=== PATIENT | male | born 1960 | race Caucasian/White ===

== ENCOUNTER 2021-03-31 08:08 | Outpatient (CLI) | payer OTHER, SELFPAY ==
--- NOTE | ~2021-03-31 | XR_ITS ---
EXAMINATION: XR UGI w barium swallow DATE: 03/31/2021 08:58 INDICATION: Gastroesophageal reflux with esophagitis TECHNIQUE: The patient drank thick barium, gas-producing crystals, and thin barium. Fluoroscopic spot radiographs of the hypopharynx, esophagus, stomach and proximal small bowel were obtained. Fluorosco py exposure time was 2.6 minutes. A total of 837 images were recorded. Total DAP was 16.144 mGycm^2 COMPARISON: None. FINDINGS: The pharynx is symmetric and without evidence of mass lesion or mucosal irregularity. The esophagus i s normal without mass or stricture. Esophageal motility is normal. Small sliding-type hiatal hernia w ith gastroesophageal junction approximately 3 to 4 cm above level of the diaphragm. A single episode of gastroesophageal reflux of a moderate amount of contrast into the mid esophagus was observed with provocative maneuvers. The stomach and proximal small bowel are normal. IMPRESSION: 1. Small sliding-type hiatal hernia with gastroesophageal reflux. Reviewed, dictated and finalized at location A.
== END 2021-03-31 08:09 | disposition home or self-care (01) ==
PROVIDERS: PCP Emergency Medicine; Visit Provider Internal Medicine Gastroenterology
DX: K21.00 Gastro-esophageal reflux disease with esophagitis, without bleeding (principal); K44.9 Diaphragmatic hernia without obstruction or gangrene
CPT/HCPCS: 74240

== ENCOUNTER 2021-04-15 00:53 | Day surgery (SDC) | payer OTHER, SELFPAY ==
[2021-04-06 10:15] VITALS: BMI 25.0
[2021-04-15] MEDS: LACTATED RINGERS 1,000 ML 150 ML IV CONT (13:03)
[2021-04-15 13:05] VITALS: BP 135/81; PULSE 66; RESP 18; TEMP 36.3; O2SAT 100
--- NOTE | 2021-04-15 13:15 | WPDANESEPPF ---
Anes - Initial Pre Proc Eval Procedure: Operation Date: 04/15/21 14:00 Proposed Procedures p Esophagogastroduodenoscopy - Jeff Villa MD Date/Time: 04/15/21 13:15 Surgeon: Jeff Villa MD Pre Op Diagnosis: GERD Patient Data Age: 60 Gender: M Height: 1.77 m Weight: 79 kg Last Vital Signs Temp 36.3 C L 04/15/21 13:05 Pulse 66 04/15/21 13:05 Resp 18 04/15/21 13:05 BP 135/81 04/15/21 13:05 Pulse Ox 100 04/15/21 13:05 Allergies Allergy/AdvReac Type Severity Reaction Status Date / Time No Known Allergies Allergy Unverified 04/15/21 12:42 Home Medications Medication Instructions Recorded Confirmed Type acetaminophen 500 mg tablet See Rx Instructions .ROUTE .COMPLEX 09/12/19 04/06/21 History gabapentin 300 mg capsule See Rx Instructions .ROUTE .COMPLEX 03/29/20 04/06/21 History propranolol 20 mg tablet See Rx Instructions .ROUTE 08/31/20 04/06/21 Rx .COMPLEX #180 tablet pantoprazole 40 mg tablet,delayed See Rx Instructions .ROUTE 09/21/20 04/06/21 Rx release .COMPLEX #180 tablet sertraline 50 mg tablet 50 mg PO DAILY #90 tablet 11/30/20 04/06/21 Rx tramadol 50 mg tablet 50 mg PO Q6H PRN #30 tablet 12/16/20 04/06/21 Rx baclofen 10 mg tablet 10 mg PO BID PRN tablet 03/22/21 04/06/21 History etanercept 50 mg/mL (1 mL) 50 mg SUBCUT WEEKLY 03/22/21 04/06/21 History subcutaneous syringe famotidine 10 mg tablet 10 mg PO BID 03/22/21 04/06/21 History alprazolam 0.5 mg tablet 0.5 mg PO BID PRN #20 tablet 03/25/21 04/06/21 Rx Patient hx anesthesia problems: none Family hx anesthesia problems: none Results Review: All pre-operative results and documents have been reviewed as part of the pre-operative evaluation. [facility] Past Medical History Medical History Ankylosing spondylitis Crohn disease GERD (gastroesophageal reflux disease) Family History Family History Mother Hypertension Family history of atrial fibrillation Father Family history of diabetes mellitus in first degree relative Family history of congestive heart failure Social History Social History Smoking status: Never smoker Alcohol intake: current Living arrangements: with family Spiritual care concerns: No Anes - Eval Final PreProcedure Day of Procedure 04/15/21 13:15 Patient weight: normal Heart: regular rate and rhythm Lungs: clear to auscultation Airway: Mallampati scale class II Neurological: alert and oriented Last oral intake: >/= 8 hours ASA classification: III Emergent: no Anesthetic plan: proceed Anesthesia type and monitoring: general GIVS and standard monitoring Results Review: All pre-operative results and documents have been reviewed as part of the pre-operative evaluation. Informed Consent: The patient's anesthetic plan and its attendant risks and benefits were discussed with the patient/family/POA. Questions were solicited and answers provided to the satisfaction of the patient/family/POA.
--- NOTE | 2021-04-15 13:19 | PM.HPGS ---
History of Present Illness History of Present Illness Consent: Risks, benefits, and alternatives have been discussed and questions answered. Patient agrees to proceed with procedure. Chief complaint: GERD Narrative: Villa Miranda is a 60 year old male With a long history of acid reflux problems. Several years ago he was diagnosed with eosinophilic esophagitis. He has been taking pantoprazole 40 mg daily. Despite this he wakes up almost every night regurgitating the. Many foods make him more likely to have heartburn or reflux. He denies dysphagia. Recent upper GI showed a hiatal hernia Review of Systems Review of Systems: All systems reviewed & are unremarkable except as noted in HPI and below PMFSH Past Medical History Medical History Ankylosing spondylitis Crohn disease GERD (gastroesophageal reflux disease) Family History Family History Mother Hypertension Family history of atrial fibrillation Father Family history of diabetes mellitus in first degree relative Family history of congestive heart failure Social History Social History Smoking status: Never smoker Alcohol intake: current Living arrangements: with family Spiritual care concerns: No Meds Home Medications and Allergies Home Medications Medication Instructions Recorded Confirmed Type acetaminophen 500 mg tablet See Rx Instructions .ROUTE .COMPLEX 09/12/19 04/06/21 History gabapentin 300 mg capsule See Rx Instructions .ROUTE .COMPLEX 03/29/20 04/06/21 History propranolol 20 mg tablet See Rx Instructions .ROUTE 08/31/20 04/06/21 Rx .COMPLEX #180 tablet pantoprazole 40 mg tablet,delayed See Rx Instructions .ROUTE 09/21/20 04/06/21 Rx release .COMPLEX #180 tablet sertraline 50 mg tablet 50 mg PO DAILY #90 tablet 11/30/20 04/06/21 Rx tramadol 50 mg tablet 50 mg PO Q6H PRN #30 tablet 12/16/20 04/06/21 Rx baclofen 10 mg tablet 10 mg PO BID PRN tablet 03/22/21 04/06/21 History etanercept 50 mg/mL (1 mL) 50 mg SUBCUT WEEKLY 03/22/21 04/06/21 History subcutaneous syringe famotidine 10 mg tablet 10 mg PO BID 03/22/21 04/06/21 History alprazolam 0.5 mg tablet 0.5 mg PO BID PRN #20 tablet 03/25/21 04/06/21 Rx Allergies Allergy/AdvReac Type Severity Reaction Status Date / Time No Known Allergies Allergy Unverified 04/15/21 12:42 Vital Signs Vital Signs - 24 hr 04/15/21 13:05 Temperature 36.3 C L Pulse Rate 66 Respiratory Rate 18 Blood Pressure 135/81 Pulse Oximetry 100 Exam Resp: Auscultation: clear to auscultation bilaterally Cardio: Rate: regular rate Rhythm: regular rhythm GI: GI Palp: Yes Soft to palpation and No Tenderness to palpation present (GI) Assessment and Plan Assessment and plan (1) GERD (gastroesophageal reflux disease): Qualifiers: Esophagitis presence: with esophagitis Qualified Code(s): K21.0 - Gastro-esophageal reflux disease with esophagitis Code(s): K21.9 - Gastro-esophageal reflux disease without esophagitis Status: Acute Assessment and Plan: EGD with possible biopsy or dilatation or cautery.
[2021-04-15 13:38] VITALS: BP 130/80; PULSE 76; RESP 27; O2SAT 99
[2021-04-15 13:48] VITALS: BP 143/93; PULSE 62; RESP 18; O2SAT 100
[2021-04-15 13:58] VITALS: BP 153/93; PULSE 60; RESP 17; O2SAT 100
== END 2021-04-15 14:06 | disposition home or self-care (01) ==
PROVIDERS: PCP Emergency Medicine; Visit Provider Internal Medicine Gastroenterology
PROC: 0DJ08ZZ Inspection of Upper Intestinal Tract, Via Natural or Artificial Opening Endoscopic (ICD-10-PCS; CPT 43235; principal; 2021-04-15 14:00)
DX: K21.00 Gastro-esophageal reflux disease with esophagitis, without bleeding (principal); K50.90 Crohn's disease, unspecified, without complications; M45.9 Ankylosing spondylitis of unspecified sites in spine
CPT/HCPCS: 43239; 88305; J2001; J2704; J7120

== ENCOUNTER 2021-05-04 21:22 | Emergency (ER) | payer OTHER, SELFPAY ==
--- NOTE | ~2021-05-04 | CT_ITS ---
EXAMINATION: CTA brain carotid EXAM DATE: 05/04/2021 23:57 INDICATION: Falls, on blood thinners. TECHNIQUE: Noncontrast head CT. Spiral CTA of the carotid arteries was performed with intravenous i njection 100 cc of Omnipaque 350. Axial, coronal, sagittal reformatted images reviewed. Additional r eformatted images created on dedicated 3-D workstation. NASCET comparable standard used to assess th e degree of arterial stenosis. Spiral CT angiogram cerebral arteries performed with the same intrave nous injection of contrast. Source images of the brain CTA transferred to dedicated workstation for 3 -D rotational image creation. Coronal, sagittal maximum intensity pixel images also reviewed. The d ose-length product (DLP) for this examination was 1766.71 mGy-cm. The exposure was tailored accordi ng to patient size, and iterative reconstruction (ASIR) was used as additional dose reduction techniq ue. There is no prior study for comparison. FINDINGS: There is minimal left carotid bulb arterial sclerosis, and none on the right, 0% stenosis b ilaterally. There is no carotid or vertebral basilar arterial dissection or fibromuscular dysplasia. There are no cerebral artery aneurysms. There is symmetric cerebral artery arborization. The sagitta l, transverse and sigmoid sinuses enhance normally, no venous sinus thrombosis. Internal cerebral vei ns also enhance normally. There is no acute intraparenchymal hemorrhage. Mild microangiopathy. No evidence of intraparenchymal brain mass lesion. No evidence of acute infarction. There is no mass effect or midline shift. There is no obstructive hydrocephalus suspected. There are no extra-axial collections. There is mild ethmo id mucoperiosteal thickening. Mastoid air cells are well aerated. Incidental Findings: Lung apices are unremarkable. Osseous fusion of upper cervical vertebral bodies without fracture. IMPRESSION: 1. No acute carotid or intracranial findings. 2. Mild microangiopathy. Reviewed, dictated and finalized at location A.
[2021-05-04 21:27] VITALS: BP 195/95; PULSE 72; RESP 18; TEMP 36.8; O2SAT 98
--- NOTE | 2021-05-04 21:30 | ECG_ITS ---
Measurements Intervals [place] Rate: 70 P: 61 [place]: 185 QRS: 63 QRSD: 90 T: 64 QT: 374 QTc: 406 Interpretive Statements SINUS RHYTHM BASELINE ARTIFACT- II, III NORMAL ECG Electronically Signed On 05-05-2021 6:33:09 CDT by Gerson Monson D.O.
[2021-05-04 23:06] VITALS: BP 180/99; PULSE 78; RESP 16; TEMP 36.7; O2SAT 99
[2021-05-04 23:09] LABS: Basophils Absolute Auto 0.1 K/mm3 (0.0-0.1); Basophils Percent Auto 1.5 % (0.2-1.2); Eosinophils Absolute Auto 0.8 K/mm3 (0-0.3); Eosinophils Percent Auto 9.3 % (0-4.4); Hematocrit 44.7 % (42.0-52.0); Hemoglobin 13.9 g/dL (14.0-18.0); Immature Granulocyte Absolute 0.02 K/mm3 (0.00-0.031); Immature Granulocyte Percent A 0.2 % (0-0.5); Lymphocytes Absolute Auto 1.54 K/mm3 (0.9-3.2); Lymphocytes Percent Auto 18.3 % (18.3-44.2); Mean Corpuscular HGB Conc 31.1 g/dl (32-36); Mean Corpuscular Hemoglobin 26.7 pg (26-34); Mean Corpuscular Volume 85.8 fl (80-100); Mean Platelet Volume 9.7 fl (7.4-10.4); Monocytes Absolute Auto 0.9 K/mm3 (0.1-0.6); Neutrophils Percent Auto 59.7 % (45.5-73.1); Platelet Count Result 276 k/mm3 (150-375); Red Blood Count 5.21 M/mm3 (4.6-6.20); Red Cell Distribution Width 14.4 % (11.5-14.5); White Blood Count 8.4 K/mm3 (4.5-10.0)
--- NOTE | 2021-05-04 23:16 | ED.AMS ---
HPI - Altered Mental Status General Chief Complaint: Altered Mental Status Stated Complaint: felt like was going dream to dream @2030 Time Seen by Provider: 05/04/21 22:45 Source: patient Mode of arrival: ambulatory Limitations: no limitations History of Present Illness HPI narrative: 60-year-old male with history of ankylosing spondylolisthesis, resting tremor and GERD arrives complaining of feeling like he is in a dream as well as neck pain with occipital pain sudden onset just prior to arrival. Patient was sitting in a chair when he suddenly felt as if he was in a dream and could not stop himself out of it which made him become more anxious and developed palpitations. No palpitations now. He does not have that same feeling now. However he is complaining of mid occiput pain rating to the central neck. Of note patient does not have a history of hypertension he came in at 195/95 pulse of 92. No other focal deficits noted. His states his left leg seems to be weaker prior to arrival but now is okay. Patient taking all medications, states he was not falling asleep at the time, no fever, no vomiting, does have some nausea. No vertigo, no syncope. No previous history of same. No recent medication changes. Patient arrives alert and oriented x4 GCS 15 with no focal neuro deficits noted. Related Data Home Medications Medication Instructions Recorded Confirmed acetaminophen 500 mg tablet See Rx Instructions .ROUTE .COMPLEX 09/12/19 04/20/21 gabapentin 300 mg capsule See Rx Instructions .ROUTE .COMPLEX 03/29/20 04/20/21 baclofen 10 mg tablet 10 mg PO BID PRN tablet 03/22/21 04/20/21 etanercept 50 mg/mL (1 mL) 50 mg SUBCUT WEEKLY 03/22/21 04/20/21 subcutaneous syringe famotidine 10 mg tablet 10 mg PO BID 03/22/21 04/20/21 Allergies Allergy/AdvReac Type Severity Reaction Status Date / Time No Known Allergies Allergy Verified 04/20/21 11:43 Review of Systems Review of Systems: CONSTITUTIONAL: no fever, no weight loss, no confusion EYES: no vision changes, no eye pain ENT: no rhinorrhea, no sore throat, no difficulty swallowing CARDIOVASCULAR: no chest pain, no leg edema, no palpitations RESPIRATORY: no cough, no shortness of breath, no hemoptysis GASTROINTESTINAL: no abdominal pain, no nausea, no vomiting, no diarrhea GENITOURINARY: no flank pain, no dysuria, no hematuria SKIN: no rash, no jaundice MUSCULOSKELETAL: no back pain, no trauma. NEUROLOGIC: No headache, no dizziness, no focal weakness PSYCHIATRIC: No hallucinations, no suicidal ideation [facility] Past Medical History Medical History (Updated 05/05/21 @ 02:10 by Radha Sommer MD) Ankylosing spondylitis Crohn disease GERD (gastroesophageal reflux disease) Family History Family History Mother Hypertension Family history of atrial fibrillation Father Family history of diabetes mellitus in first degree relative Family history of congestive heart failure Social History Social History Smoking status: Never smoker Alcohol intake: current Spiritual care concerns: No Exam Narrative: General: alert, afebrile, answering all questions appropriately Head: normocephalic, atraumatic Eyes: PERRLA, EOMI bilaterally, anicteric, no injection ENT: moist mucous membranes, oropharynx patent, no rhinorrhea Neck: supple, trachea midline, no JVD Chest: equal chest rise bilaterally, no chest wall trauma noted CV: regular rate, no BLU B, calf size equal bilaterally Abd: soft, non-distended, non-tender, no rebound, no gaurding, negative Short's : no CVA tenderness B, bladder non-distended Back: no lumbar bony tenderness. paraspinal muscles without spasm EXT: no deformity noted, moving all extremities equally Skin: warm, dry, no pallor Neuro: alert, oriented x 3; CN 2-12 grossly intact, no dysarthria Psych: affect appropriate, though cont
[2021-05-04 23:41] LABS: Alanine Aminotransferase 19 U/L (4-50); Albumin Level 4.4 g/dL (3.5-5.1); Alkaline Phosphatase 73 U/L (38-126); Anion Gap 8 mmol/L (8-16); Aspartate Amino Transferase 26 U/L (17-59); Bilirubin,Total 0.4 mg/dL (0.2-1.3); Blood Urea Nitrogen 15 mg/dL (9-20); Calcium 9.4 mg/dL (8.4-10.2); Carbon Dioxide 30 mmol/L (22-30); Chloride 103 mmol/L (98-107); Estimated CRCL calculation 90 ml/min; Estimated Glomerular Filt Rate > 60; Glucose 115 mg/dL (65-110); Potassium 4.3 mmol/L (3.4-5.0); Sodium 141 mmol/L (137-145)
[2021-05-05 00:11] VITALS: PULSE 68
[2021-05-05] MEDS: METOPROLOL TARTRATE INJ 5 MG/5 ML VIAL IV PUSH (00:11)
[2021-05-05 00:19] VITALS: BP 176/86; PULSE 76; RESP 16; O2SAT 99
[2021-05-05 00:28] LABS: Add Urine Microscopic? NO; Appearance Urine Clear (Clear); Bilirubin Urine Negative (Negative); Blood Urine Negative (Negative); Color Urine Straw (Yellow); Glucose Urine UA Negative (Negative); Ketones Urine Negative (Negative); Leukocyte Esterase Ur Negative LEU/UL (Negative); Nitrate Urine Negative (Negative); Protein Urine Negative (Negative); Specific Grav Ur 1.008 (1.001-1.035); Urobilinogen Urine Negative mg/dL (<2.0)
[2021-05-05 02:19] VITALS: BP 146/87; PULSE 77; RESP 18; O2SAT 99
== END 2021-05-05 02:20 | disposition home or self-care (01) ==
PROVIDERS: Family Medicine; Emergency Provider Emergency Medicine; PCP Emergency Medicine
DX: I67.4 Hypertensive encephalopathy (principal); I16.1 Hypertensive emergency; K50.90 Crohn's disease, unspecified, without complications; K21.9 Gastro-esophageal reflux disease without esophagitis; M45.9 Ankylosing spondylitis of unspecified sites in spine; I73.9 Peripheral vascular disease, unspecified
CPT/HCPCS: 36415; 70496; 70498; 80053; 81003; 85025; 93005; 96374; 99284; Q9967

== ENCOUNTER 2021-05-16 09:07 | Emergency (ER) | payer OTHER, SELFPAY ==
[2021-05-16 09:17] VITALS: BP 137/75; PULSE 84; RESP 20; TEMP 36.6; O2SAT 100
--- NOTE | 2021-05-16 09:53 | ED.URI ---
HPI - URI/Sore Throat General Chief Complaint: Upper Respiratory Infection Stated Complaint: Sore Throat/Cough Time Seen by Provider: 05/16/21 09:52 Source: patient and RN notes reviewed Mode of arrival: ambulatory Limitations: no limitations History of Present Illness HPI Narrative: 60-year-old male presents with concern for more than 1 week history of cough, chest congestion, sinus congestion and sore throat. Reports symptoms worsened yesterday and cough is productive. Reports he has been taking Mucinex DM with little relief. He denies fever, body aches, chills, sweats. He denies shortness of breath. Reports he has been vaccinated for Covid and flu and had a Covid booster. Reports he had a Covid infection in July of this year. MD elicited complaint: cough Related Data Home Medications Medication Instructions Recorded Confirmed acetaminophen 500 mg tablet See Rx Instructions .ROUTE .COMPLEX 09/12/19 04/20/21 gabapentin 300 mg capsule See Rx Instructions .ROUTE .COMPLEX 03/29/20 04/20/21 baclofen 10 mg tablet 10 mg PO BID PRN tablet 03/22/21 04/20/21 etanercept 50 mg/mL (1 mL) 50 mg SUBCUT WEEKLY 03/22/21 04/20/21 subcutaneous syringe famotidine 10 mg tablet 10 mg PO BID 03/22/21 04/20/21 Allergies Allergy/AdvReac Type Severity Reaction Status Date / Time No Known Allergies Allergy Verified 05/16/21 09:53 Review of Systems Review of Systems: CONSTITUTIONAL: Reports malaise. Denies chills, sweats, or fever. EYES: Denies visual changes, redness, or discharge. ENT: Reports rhinorrhea, congestion, sore throat. CARDIOVASCULAR: Denies chest pain, palpitations, or edema. RESPIRATORY: Reports cough, productive cough. Denies dyspnea. GASTROINTESTINAL: Denies nausea, vomiting, diarrhea SKIN: Denies rash or itching. MUSCULOSKELETAL: Reports myalgia. NEUROLOGIC: Denies headache. All systems reviewed & are unremarkable except as noted in HPI and below PMFSH Past Medical History Medical History Amputation of digit of left hand Ankylosing spondylitis Crohn disease GERD (gastroesophageal reflux disease) Surgical History Surgical History [place] teeth extracted Family History Family History Mother Hypertension Family history of atrial fibrillation Father Family history of diabetes mellitus in first degree relative Family history of congestive heart failure Social History Social History Smoking status: Never smoker Alcohol intake: current Spiritual care concerns: No Comments At time of signature, agree with nursing past medical, surgical, social and family history. There is no relevant family history pertinent to the presenting complaint Exam Narrative: GENERAL: Well-appearing, well-nourished, and in no acute distress. HEAD: Normocephalic EYES: PERRLA, conjunctivae clear ENT: Nares clear, turbinates edematous, clear discharge. Mucous membranes moist. TM pearly betancur with sharp light reflex bilaterally; no tragal tenderness. Oropharynx mildly erythematous without lesions. Tonsils not enlarged and without exudate, no drooling, no hoarseness, no trismus, uvula midline. NECK: Supple. No lymphadenopathy CHEST: Clear to auscultation, breath sounds equal. No wheezing, rhonchi, rales, or stridor. No respiratory distress, speaks in full sentences. HEART: Regular rate and rhythm. No murmur heard. SKIN: Warm, dry, no rash. NEURO: Alert and oriented x3. PSYCH: Normal mood and affect Course Course Emergency Course: Patient is aware of diagnosis, understands and agrees to treatment plan. Anticipatory guidance given. Patient agrees to follow-up as directed and is aware of reasons to seek care at the emergency department. Portions of this record may have been created with voice recog
== END 2021-05-16 10:05 | disposition home or self-care (01) ==
PROVIDERS: Emergency Provider Nurse Practitioner; PCP Emergency Medicine
DX: J32.9 Chronic sinusitis, unspecified (principal); J40 Bronchitis, not specified as acute or chronic; Z20.822 Contact with and (suspected) exposure to COVID-19; K21.9 Gastro-esophageal reflux disease without esophagitis; K50.90 Crohn's disease, unspecified, without complications; M45.9 Ankylosing spondylitis of unspecified sites in spine; Z89.021 Acquired absence of right finger(s)
CPT/HCPCS: 87081; 87426; 87880; 99213; C9803; G0463

== ENCOUNTER 2021-10-27 10:34 | Outpatient (CLI) | payer OTHER, SELFPAY ==
--- NOTE | ~2021-10-27 | XR_ITS ---
EXAMINATION: XR chest 2V DATE: 10/27/2021 11:14 INDICATION: Gastroesophageal reflux disease with esophagitis. TECHNIQUE: Frontal and lateral views of the chest were obtained. COMPARISON: Chest 2 views 03/04/2015 FINDINGS: A calcified left lung nodule is consistent with old granulomas disc disease. No pleural eff usion or pneumothorax. The heart size is normal. IMPRESSION: 1. No acute cardiopulmonary disease. Reviewed, dictated and finalized at location A.
--- NOTE | 2021-10-27 10:30 | ECG_ITS ---
Measurements Intervals [place] Rate: 61 P: 58 [place]: 205 QRS: 40 QRSD: 86 T: 42 QT: 376 QTc: 381 Interpretive Statements SINUS RHYTHM COMPARED TO ECG 05/04/2021 21:37:20 NO SIGNIFICANT CHANGES Electronically Signed On 10-27-2021 20:54:18 CDT by Mary Murphy M.D.
[2021-10-27 11:28] LABS: Basophils Absolute Auto 0.1 K/mm3 (0.0-0.1); Basophils Percent Auto 2.1 % (0.2-1.2); Eosinophils Absolute Auto 0.4 K/mm3 (0-0.3); Eosinophils Percent Auto 8.3 % (0-4.4); Hematocrit 43.9 % (42.0-52.0); Hemoglobin 13.5 g/dL (14.0-18.0); Lymphocytes Absolute Auto 1.53 K/mm3 (0.9-3.2); Lymphocytes Percent Auto 29.5 % (18.3-44.2); Mean Corpuscular HGB Conc 30.8 g/dl (32-36); Mean Corpuscular Hemoglobin 26.7 pg (26-34); Mean Corpuscular Volume 86.9 fl (80-100); Mean Platelet Volume 10.5 fl (7.4-10.4); Monocytes Absolute Auto 0.8 K/mm3 (0.1-0.6); Monocytes Percent Auto 14.8 % (2.6-8.5); Neutrophils Absolute Auto 2.4 K/mm3 (1.3-6.7); Neutrophils Percent Auto 45.3 % (45.5-73.1); Platelet Count Result 255 k/mm3 (150-375); Red Blood Count 5.05 M/mm3 (4.6-6.20); Red Cell Distribution Width 13.9 % (11.5-14.5); White Blood Count 5.2 K/mm3 (4.5-10.0)
[2021-10-27 11:38] LABS: Anion Gap 5 mmol/L (8-16); Blood Urea Nitrogen 14 mg/dL (9-20); Calcium 8.5 mg/dL (8.4-10.2); Carbon Dioxide 31 mmol/L (22-30); Chloride 105 mmol/L (98-107); Estimated Glomerular Filt Rate > 60; Glucose 79 mg/dL (65-110); Sodium 141 mmol/L (137-145)
== END 2021-10-27 10:35 | disposition home or self-care (01) ==
PROVIDERS: PCP Emergency Medicine; Visit Provider Surgery
DX: Z01.818 Encounter for other preprocedural examination (principal); K21.00 Gastro-esophageal reflux disease with esophagitis, without bleeding
CPT/HCPCS: 36415; 71046; 80048; 85025; 86850; 86900; 86901; 93005

== ENCOUNTER 2021-11-03 14:02 | Observation (INO) | payer OTHER, SELFPAY ==
[2021-10-25 10:33] VITALS: BMI 25.9
--- NOTE | 2021-10-25 11:48 | PC.NURSE ---
Report to the Outpatient Waiting Room, entrance under the green pavilion located off [facility], at time _06:00__on date _11/02/21__. OR Time: _07:30_. - You and your visitor will be asked a series of questions to screen for COVID 19 for your protection. - A mask is required within the hospital. Preoperative COVID Testing Requirements: No COVID Test needed Patients may have clear liquids (water, carbonated beverages, clear teas, apple juice) until 3 hours prior to surgery with a maximum of 20 ounces. - No food from midnight until time of surgery - Take the following medications with a SIP of water the morning of surgery: ALPRAZOLAM IF NEEDED, BACLOFEN IF NEEDED, GABAPENTIN, PROPRANOLOL, TRAMADOL IF NEEDED, SERTRALINE Medications to discontinue per physician ___N/A Date to take last dose Please no make-up, nail filipino, hairspray, perfume, deodorant, or body powder the day of surgery. No jewelry (including any body piercings) or valuables the day of surgery, leave them at home. Please take a shower or bath the night before, or the morning of, surgery with an antibacterial soap. Wear comfortable, loose fitting clothing. - Jewelry must be removed prior to entering the operating room. Rings and piercings that are not removed may be cut off. - The hospital will not accept responsibility for valuables. - Please leave all valuables, including medications, at home the day of surgery. If you are going home after surgery, a licensed pile driver must drive you home. - NO public transportation without another adult. - We recommend that an adult stay with you for 24 hours following discharge. - We also recommend that you do not drive, make important decision, drink alcoholic beverages, or take any drugs that were not prescribed by your health care provider for at least 24 hours after your discharge time. One visitor will be allowed to accompany the patient into the hospital. Patients visitor will be instructed to remain with patient at all times or leave the building. We will allow the visitor to come back to the postoperative area when patient is ready. Follow any additional instructions given to you from your surgeon. Telephone instructions given to __GILMER__and asked if any additional questions and then verbalized understanding. Patient advised to call surgeon office or pre surgery nurse liaison [phone] if any additional questions.
--- NOTE | 2021-10-27 09:10 | PM.IMHP ---
H&P: HPI History of Present Illness Date/Time: 10/27/21 09:10 Chief Complaint: Persistent heartburn Narrative: patient is a 61-year-old man who has a history of ankylosing spondylitis. He takes etanercept or Enbrel for this. He was initially seen in referral from Dr. Villa back in May of 2021 for recalcitrant gastroesophageal reflux disease with esophagitis. Patient has been taking Protonix 40 mg b.i.d. for at least 4 years due to an endoscopic biopsy of eosinophilic esophagitis. His symptoms of heartburn were mild until October of 2020 at which time they got considerably worse. He saw Dr. Villa and in April of 2021 underwent repeat EGD. Biopsies of the upper esophagus did not so eosinophilic esophagitis but did show chronic esophagitis. Biopsies of the lower esophagus I guess showed nonerosive gastroesophageal reflux disease. Patient also had a upper GI in March of 2021 which showed a small hiatal hernia with gastroesophageal reflux. At the time of his visit in May, he was taking not only Protonix but also Pepcid for reflux symptoms but was still symptomatic. He was sent for esophageal manometry in June which showed a normal lower esophageal sphincter and normal esophageal body peristalsis. patient also has a history of Crohn's disease but does not take any medication specifically for this although he does take etanercept as noted above. He had thorough discussion of surgical remedy of persistent gastroesophageal reflux disease at both his office visits. He is taken to surgery now at this time for laparoscopic Soraya fundoplication. Review of Systems Review of Systems: All systems reviewed & are unremarkable except as noted in HPI and below Constitutional: Constitutional: Denies chills and Denies fever(s) Cardiovascular: Cardiovascular: Denies chest pain, Denies diaphoresis, Denies dyspnea and Denies paroxysmal nocturnal dyspnea Respiratory: Respiratory: Denies chest congestion, Denies cough and Denies dyspnea Gastrointestinal: Gastrointestinal: Denies bloating, Denies constipation and Denies nausea Integumentary/Breasts: Skin/Breast: Denies lesions and Denies rash Neurologic: Denies confusion and Denies headache(s) [facility] Past Medical History Medical History (Updated 10/27/21 @ 09:27 by Marquise Sandoval MD) Amputation of digit of left hand Ankylosing spondylitis Crohn disease Eosinophilic esophagitis Surgical History Surgical History [place] teeth extracted Family History Family History Mother Hypertension Family history of atrial fibrillation Father Family history of diabetes mellitus in first degree relative Family history of congestive heart failure Social History Social History Smoking status: Never smoker Alcohol intake: current Substance use: never Substance use type: does not use Spiritual care concerns: No Meds Home Medications and Allergies Home Medications Medication Instructions Recorded Confirmed Type acetaminophen 500 mg tablet See Rx Instructions .ROUTE .COMPLEX 09/12/19 10/25/21 History gabapentin 300 mg capsule 300 mg PO TID 03/29/20 10/25/21 History tramadol 50 mg tablet 50 mg PO Q6H PRN #30 tablet 12/16/20 10/25/21 Rx baclofen 10 mg tablet 10 mg PO TID PRN tablet 03/22/21 10/25/21 History famotidine 10 mg tablet 10 mg PO BID 03/22/21 10/25/21 History etanercept [Enbrel SureClick] 50 mg SUBCUT WEEKLY 05/16/21 10/25/21 History famotidine-Ca carb-mag hydrox 10 1 tablet PO BID 05/23/21 10/25/21 History mg-800 mg-165 mg chewable tablet pantoprazole 40 mg tablet,delayed 40 mg PO BID #180 tablet 06/27/21 10/25/21 Rx release propranolol 20 mg tablet 20 mg PO BID #180 tablet 06/27/21 10/25/21 Rx sertraline 50 mg tablet 50 mg PO DAILY #90 tablet 09/16/21 10/25/21 Rx atorvastatin 10 mg tablet
--- NOTE | 2021-11-01 13:20 | WPDANESEPPF ---
Anes - Initial Pre Proc Eval Procedure: Operation Date: 11/02/21 07:30 Proposed Procedures p Laparoscopic Soraya Fundoplication - Marquise Sandoval MD Date/Time: 11/01/21 13:20 Surgeon: Marquise Sandoval MD Pre Op Diagnosis: GERD Patient Data Age: 61 Gender: M Height: 1.78 m Weight: 82 kg Allergies Allergy/AdvReac Type Severity Reaction Status Date / Time No Known Allergies Allergy Verified 11/02/21 06:24 Home Medications Medication Instructions Recorded Confirmed Type acetaminophen 500 mg tablet See Rx Instructions .ROUTE .COMPLEX 09/12/19 11/02/21 History gabapentin 300 mg capsule 300 mg PO TID 03/29/20 11/02/21 History tramadol 50 mg tablet 50 mg PO Q6H PRN #30 tablet 12/16/20 11/02/21 Rx baclofen 10 mg tablet 10 mg PO TID PRN tablet 03/22/21 11/02/21 History etanercept [Enbrel SureClick] 50 mg SUBCUT WEEKLY 05/16/21 11/02/21 History famotidine-Ca carb-mag hydrox 10 1 tablet PO BID 05/23/21 11/02/21 History mg-800 mg-165 mg chewable tablet pantoprazole 40 mg tablet,delayed 40 mg PO BID #180 tablet 06/27/21 11/02/21 Rx release propranolol 20 mg tablet 20 mg PO BID #180 tablet 06/27/21 11/02/21 Rx sertraline 50 mg tablet 50 mg PO DAILY #90 tablet 09/16/21 11/02/21 Rx atorvastatin 10 mg tablet 10 mg PO DAILY #90 tablet 10/19/21 11/02/21 Rx alprazolam 0.5 mg tablet 0.5 mg PO BID PRN #20 tablet 10/24/21 11/02/21 Rx Patient hx anesthesia problems: none Family hx anesthesia problems: none Results Review: All pre-operative results and documents have been reviewed as part of the pre-operative evaluation. [facility] Past Medical History Medical History (Updated 11/01/21 @ 13:21 by Kurt Morgan DO) Amputation of digit of left hand Ankylosing spondylitis Crohn disease Eosinophilic esophagitis GERD (gastroesophageal reflux disease) EBONY (obstructive sleep apnea) Panic attack Surgical History Surgical History [place] teeth extracted Family History Family History Mother Hypertension Family history of atrial fibrillation Father Family history of diabetes mellitus in first degree relative Family history of congestive heart failure Social History Social History Smoking status: Never smoker Alcohol intake: current Substance use: never Substance use type: does not use Living arrangements: with family Spiritual care concerns: No Anes - Eval Final PreProcedure Day of Procedure 11/01/21 13:20 Patient weight: overweight Heart: regular rate and rhythm Lungs: clear to auscultation and normal air movement Airway: Mallampati scale class II Neurological: alert and oriented Last oral intake: >/= 8 hours ASA classification: III Emergent: no Anesthetic plan: proceed Anesthesia type and monitoring: general ETT and standard monitoring Results Review: All pre-operative results and documents have been reviewed as part of the pre-operative evaluation. Informed Consent: The patient's anesthetic plan and its attendant risks and benefits were discussed with the patient/family/POA. Questions were solicited and answers provided to the satisfaction of the patient/family/POA.
[2021-11-02] VITALS (14 sets, daily range): BP systolic 134–162; BP diastolic 73–94; PULSE 78–108; RESP 14–18; TEMP 36.4–36.9; O2SAT 94–100
--- NOTE | 2021-11-02 07:06 | WPDHPUPDATE1 ---
History and Physical Update Update Date/Time: 11/02/21 07:06 History and Physical has been reviewed, including an updated exam of the patient. There are NO changes in the patient's condition. Risks, benefits, and alternatives have been discussed and questions answered. Patient agrees to proceed with procedure.
[2021-11-02] MEDS: LACTATED RINGERS 1,000 ML 30 ML IV CONT ×2 (07:07→10:18)
[2021-11-02] MEDS: ceFAZolin 2 GM/D5W 50 ML 2 GM/50 ML BAG IVPB (07:31)
--- NOTE | 2021-11-02 10:04 | W.PM.PROC2 ---
Procedure Note - Detailed Date of Procedure 11/02/21 Pre-op Diagnosis GERD with esophagitis Post-op Diagnosis Same Procedure Performed Laparoscopic Soraya fundoplication Surgeon Marquise Sandoval MD Surgical Supplies Sterilizer [place]IN[place] Anesthesia General and Local Indications Patient has a hiatal hernia and gastroesophageal reflux disease. His heartburn was controlled with medications for quite some time but now is non responsive to maximal medical therapy. He did have an EGD which showed reflux changes with chronic esophagitis. He is taken to surgery now for laparoscopic Soraya fundoplication. Findings Small to moderate hiatal hernia, sliding. No other significant findings Description of Procedure The patient was taken to surgery and induced into general anesthesia. The abdomen is prepped and draped. Trocars were placed in the usual fashion. The initial trocar was placed after a Verese needle was used and saline drop technique. Insufflation was carried out through the Varese needle. Then the initial 10 11 Optiview trocar was placed in the midline just above the umbilicus. The remaining trocars were placed under direct visualization. All trocars were 10/11 except in the right subcostal lateral position which was a 12 mm trocar. Patient was placed in reverse Trendelenburg. The liver retractor was placed through the 12 mm right-sided trocar. The lateral segment left lobe of the liver was elevated anteriorly to expose the hiatus. We then began the dissection by dividing the gastrohepatic ligament and gaining access to the right diego. The right diego was further exposed. Dissection was done completely with the LigaSure device. We then began dissecting the hiatal hernia just inside the right diego in the mediastinum. The hiatal hernia was gently reduced and adhesions to the stomach and upper esophagus were carefully divided with the LigaSure. We also divided the posterior aspect of the diego where the left and right diego joint. We were will to do a quite a bit of dissection here as well. We dissected into the mediastinum on the right side of the esophagus and freed up as much esophagus as we could. We then moved the scope to the left lateral position and changed to a 30 degree angled scope. The greater curvature of the stomach and greater omentum were then exposed. We used the LigaSure and began dividing the greater omentum from the greater curvature. This put us in the lesser sac and we were able to continue this dissection up to the hiatus. The left side of the stomach and lower esophagus were difficult to expose. None the less we were able to free adhesions and also free the stomach and esophagus from the left diego. We dissected into the mediastinum from the left side of the esophagus and freed up some of these adhesions. From there we then changed back to a straight on scope. We moved the scope back to the midline. The esophagus was further dissected well up into the mediastinum. We dissected anterior esophageal adhesions and further dissected around the esophagus well up into the mediastinum. Once this was completed, we had at least 4 if not 6 or 7 cm of intra-abdominal esophagus. No bleeding of any significance had occurred. A 1/2 inch [place] drain was then placed under the esophagus and the 2 ends were tied to 1 another with an endoloop. We used this to retract the distal esophagus at the gastroesophageal junction and did some additional mediastinal dissection. We then exposed the junction of the right and left diego posteriorly. Using the Endo Stitch and 0 Ethibond suture, simple stitches were used to close the diaphragmatic hernia. These were placed in interrupted fashion. Upon adequate closure of the hiatal hernia, we then began placing the fundoplication or wrap. The upper portion of the stomach was passed under the esophagus and holding each side of the wrap, I checked with shoe shine technique that there was no spiraling being done. The juan
[2021-11-02] MEDS: fentaNYL CITRATE INJ (*CRX) 100 MCG/2 ML VIAL 25 MCG IV PUSH ×6 (10:38→11:10)
--- NOTE | 2021-11-02 10:47 | SUR.PHASEI ---
1016 - dr. lazo at bedside assessing pt's left eye. dr. lazo talking with pt in regards to crepitus issues that they spoke about prior to surgery. pt denies SOB and itching. no rash or other issues noted
--- NOTE | 2021-11-02 12:14 | ADMGEN ---
This patient, [place] Miranda, was admitted to Medical Room 246-01. Patient/family oriented to hospital policies and general routines including ID bracelet, bed and alarms, visiting hours, pain management, procedures, bathroom and other care routines, personal items, smoking policy, room service/diet, and visiting hours. Information on how to activate the Rapid Response Team has been discussed. Patient/Family are encouraged to report perceived risks to care and to ask questions if they do not understand what they are told or what they should do.
[2021-11-02] MEDS: LACTATED RINGERS 1,000 ML 100 ML IV CONT (12:29)
[2021-11-02] MEDS: HYDROcodone/acetaminophen (*CRX) 10-325 MG TABLET 1 TAB PO (12:29)
[2021-11-02] MEDS: MORPHINE SULFATE (*CRX) 4 MG/ML INJ IV PUSH (14:55)
[2021-11-02] MEDS: ONDANSETRON INJ 4 MG/2 ML VIAL IV PUSH ×2 (15:02→20:55)
[2021-11-02] MEDS: PROPRANOLOL HCL 20 MG TABLET PO (16:20)
[2021-11-02] MEDS: GABAPENTIN 300 MG CAPSULE PO (16:21)
[2021-11-02] MEDS: HYDROcodone/acetaminophen (*CRX) 5-325 MG TABLET 1 TAB PO ×2 (18:29→22:00)
[2021-11-02] MEDS: GABAPENTIN 300 MG CAPSULE 600 MG PO (20:58)
[2021-11-02] MEDS: ENOXAPARIN 30 MG/0.3 ML SYRINGE SUB-Q (20:59)
[2021-11-02] MEDS: BACLOFEN 10 MG TABLET PO (21:54)
[2021-11-03] VITALS (7 sets, daily range): BP systolic 107–135; BP diastolic 58–78; PULSE 74–88; RESP 20–21; TEMP 36.3–36.8; O2SAT 98–100
[2021-11-03 06:12] LABS: Hematocrit 40.2 % (42.0-52.0); Hemoglobin 12.4 g/dL (14.0-18.0); Mean Corpuscular HGB Conc 30.8 g/dl (32-36); Mean Corpuscular Hemoglobin 26.7 pg (26-34); Mean Corpuscular Volume 86.6 fl (80-100); Mean Platelet Volume 10.3 fl (7.4-10.4); Platelet Count Result 231 k/mm3 (150-375); Red Blood Count 4.64 M/mm3 (4.6-6.20); Red Cell Distribution Width 14.1 % (11.5-14.5); White Blood Count 12.3 K/mm3 (4.5-10.0)
[2021-11-03] MEDS: ACETAMINOPHEN 500 MG TABLET PO ×2 (06:17→14:33)
[2021-11-03] MEDS: ONDANSETRON INJ 4 MG/2 ML VIAL IV PUSH ×4 (06:18→19:06)
[2021-11-03] MEDS: BACLOFEN 10 MG TABLET PO ×2 (06:24→12:48)
[2021-11-03 06:26] LABS: Anion Gap 5 mmol/L (8-16); Blood Urea Nitrogen 10 mg/dL (9-20); Calcium 8.4 mg/dL (8.4-10.2); Carbon Dioxide 31 mmol/L (22-30); Chloride 100 mmol/L (98-107); Estimated CRCL calculation 89 ml/min; Estimated Glomerular Filt Rate > 60; Glucose 115 mg/dL (65-110); Potassium 4.3 mmol/L (3.4-5.0); Sodium 136 mmol/L (137-145)
[2021-11-03] MEDS: GABAPENTIN 300 MG CAPSULE PO ×2 (09:12→16:21)
[2021-11-03] MEDS: ATORVASTATIN 10 MG TABLET PO (09:12)
[2021-11-03] MEDS: PROPRANOLOL HCL 20 MG TABLET PO ×2 (09:12→16:22)
[2021-11-03] MEDS: ENOXAPARIN 30 MG/0.3 ML SYRINGE SUB-Q ×2 (09:12→21:10)
[2021-11-03] MEDS: SERTRALINE HCL 50 MG TABLET PO (09:13)
[2021-11-03] MEDS: HYDROcodone/acetaminophen (*CRX) 10-325 MG TABLET 1 TAB PO ×2 (10:29→19:06)
[2021-11-03] MEDS: PANTOPRAZOLE 40 MG TABLET PO (12:47)
--- NOTE | 2021-11-03 13:35 | PM.PNGS ---
Progress Note: A&P Assessment and Plan (1) GERD with esophagitis: Qualifiers: Esophagitis bleeding: without hemorrhage Qualified Code(s): K21.00 - Gastro-esophageal reflux disease with esophagitis, without bleeding Code(s): K21.00 - Gastro-esophageal reflux disease with esophagitis, without bleeding Status: Chronic Assessment and Plan: Doing well post-op day 1. Pain well-controlled. Will advance to a low fiber diet. Continue to increase activity and walk the halls. If he continues to do well, may be able to discharge home tomorrow. (2) Ankylosing spondylitis: Qualifiers: Ankylosing spondylitis location: unspecified site of spine Qualified Code(s): M45.9 - Ankylosing spondylitis of unspecified sites in spine Code(s): M45.9 - Ankylosing spondylitis of unspecified sites in spine Status: Chronic Assessment and Plan: Takes Enbrel. (3) Crohn disease: Qualifiers: Gastrointestinal tract location: small intestine Digestive disease complication type: other complication Qualified Code(s): K50.018 - Crohn's disease of small intestine with other complication Code(s): K50.90 - Crohn's disease, unspecified, without complications Status: Chronic Additional Plan I have discussed the plan of care with Dr. Sandoval. Subjective Subjective Date/Time Seen: 11/03/21 13:35 Post Op day: 1 (Laparoscopic Soraya fundoplication) Patient reports: tolerating liquids well, voiding w/o difficulty, flatus and no bowel movement Interval history: Patient seen and examined. He has some complaints of mild dysphagia at times and feels he has some reflux with water, but overall tolerating his diet well. No nausea or vomiting. Incisional pain well controlled. Review of Systems Review of Systems: All systems reviewed & are unremarkable except as noted in HPI and below Constitutional: Constitutional: Reports as per HPI, Reports no additional constitutional complaints, Denies fever(s) and Denies headache(s) Cardiovascular: Cardiovascular: Reports no additional cardiovascular complaints, Denies chest pain, Denies leg edema and Denies dyspnea Respiratory: Respiratory: Reports no additional respiratory complaints, Denies cough and Denies dyspnea Gastrointestinal: Gastrointestinal: Reports as per HPI and Reports no additional gastrointestinal complaints Exam Const: General: comfortable, no acute distress, alert and awake Orientation/consciousness: patient oriented x3 Resp: Effort & Inspection: normal respiratory effort Auscultation: clear to auscultation bilaterally Cardio: Rate: regular rate Rhythm: regular rhythm GI: Inspection: non-distended and incision (Abdominal incisions dry and intact) GI Palp: Yes Soft to palpation, Yes Tenderness to palpation present (GI) (incisional) and No Guarding due to palpation present (GI) Auscultation: normal bowel sounds Neuro: General: moves all extremities and no focal motor deficits Extrem: General: no clubbing, cyanosis or edema and no calf tenderness Psych: Insight: Good insight present (Psych) Judgement: Good judgement present (Psych) Objective Data Vital Signs Vital Signs: Vital Signs - 24 hr 11/02/21 14:00 11/02/21 16:20 11/02/21 22:00 Temperature 98.2 F 98.4 F Pulse Rate 106 H 108 H 100 Respiratory Rate 18 18 Blood Pressure 152/86 H 139/80 Pulse Oximetry 99 96 11/03/21 06:00 11/03/21 09:12 11/03/21 09:14 Temperature 98.3 F Pulse Rate 88 82 88 Respiratory Rate 21 H Blood Pressure 107/58 L 114/70 Pulse Oximetry 100 Intake/Output Intake/Output: Intake & Output 10/31/21 11/01/21 11/02/21 11/03/21 23:59 23:59 23:59 23:59 Intake Total 3800 1290 Output Total 1025 1000 Balance 2775 290 Meds/Results Medications: Active Medications Generic Name Dose Route Start Last Admin Trade Name Freq PRN Reason Stop Dose Admin Acetaminophen 500 mg 11/02/21 11:59 11/03/21 06:17 Acetaminoph
--- NOTE | 2021-11-03 14:24 | WPDANESPN ---
Anes - Prog Note Post-Op Date/Time: 11/03/21 14:24 Cardiovascular status: normal Respiratory status: normal Airway patency: baseline Mental status: baseline Post-Op hydration status: normal Vital Signs: Last Vital Signs Temp 36.4 C 11/03/21 14:21 Pulse 74 11/03/21 14:21 Resp 20 11/03/21 14:21 BP 131/70 11/03/21 14:21 Pulse Ox 98 11/03/21 14:21 Pain Score (VAS): 1 I/O: Intake & Output 11/02/21 11/03/21 11/03/21 23:59 07:59 15:59 Intake Total 1900 750 930 Output Total 775 1000 Balance 1125 -250 930 Laboratory Tests 11/03/21 05:48 11/03/21 05:48 11/03/21 11/03/21 05:48 05:48 WBC 12.3 H RBC 4.64 Hgb 12.4 L Hct 40.2 L MCV 86.6 MCH 26.7 MCHC 30.8 L RDW 14.1 Plt Count 231 MPV 10.3 Sodium 136 L Potassium 4.3 Chloride 100 Carbon Dioxide 31 H Anion Gap 5 L BUN 10 Creatinine 0.80 Estim Creat Clear Calc 89 Estimated GFR > 60 Glucose 115 H Calcium 8.4 Patient Feedback: Patient satisfied with anesthetic care.
[2021-11-03] MEDS: diphenhydrAMINE HCl INJ 50 MG/ML VIAL 25 MG IV PUSH (21:10)
[2021-11-03] MEDS: GABAPENTIN 300 MG CAPSULE 600 MG PO (21:11)
[2021-11-04] MEDS: ACETAMINOPHEN 500 MG TABLET PO (00:50)
[2021-11-04 04:04] VITALS: BP 134/75; PULSE 89; RESP 20; TEMP 36.5; O2SAT 93
[2021-11-04 05:45] LABS: Hematocrit 36.6 % (42.0-52.0); Hemoglobin 11.7 g/dL (14.0-18.0); Mean Corpuscular Hemoglobin 27.1 pg (26-34); Mean Corpuscular Volume 84.9 fl (80-100); Mean Platelet Volume 10.3 fl (7.4-10.4); Platelet Count Result 218 k/mm3 (150-375); Red Blood Count 4.31 M/mm3 (4.6-6.20); Red Cell Distribution Width 14.1 % (11.5-14.5); White Blood Count 10.8 K/mm3 (4.5-10.0)
[2021-11-04 05:55] LABS: Anion Gap 2 mmol/L (8-16); Blood Urea Nitrogen 12 mg/dL (9-20); Calcium 8.1 mg/dL (8.4-10.2); Carbon Dioxide 32 mmol/L (22-30); Chloride 101 mmol/L (98-107); Estimated CRCL calculation 89 ml/min; Estimated Glomerular Filt Rate > 60; Glucose 100 mg/dL (65-110); Potassium 3.8 mmol/L (3.4-5.0); Sodium 135 mmol/L (137-145)
[2021-11-04 09:32] VITALS: PULSE 89
[2021-11-04] MEDS: PROPRANOLOL HCL 20 MG TABLET PO (09:32)
[2021-11-04] MEDS: ATORVASTATIN 10 MG TABLET PO (09:32)
[2021-11-04] MEDS: PANTOPRAZOLE 40 MG TABLET PO (09:32)
[2021-11-04] MEDS: ENOXAPARIN 30 MG/0.3 ML SYRINGE SUB-Q (09:32)
[2021-11-04] MEDS: SERTRALINE HCL 50 MG TABLET PO (09:32)
[2021-11-04] MEDS: GABAPENTIN 300 MG CAPSULE PO (09:33)
[2021-11-04] MEDS: HYDROcodone/acetaminophen (*CRX) 10-325 MG TABLET 1 TAB PO (09:36)
--- NOTE | 2021-11-04 11:05 | PM.DS ---
DS: Admitting Diagnosis Discharge Date 11/04/2021 Admitting Diagnosis Gastroesophageal reflux disease with esophagitis DS: Discharge Diagnosis Discharge Diagnosis (1) GERD with esophagitis: Qualifiers: Esophagitis bleeding: without hemorrhage Qualified Code(s): K21.00 - Gastro-esophageal reflux disease with esophagitis, without bleeding Code(s): K21.00 - Gastro-esophageal reflux disease with esophagitis, without bleeding Status: Chronic Assessment and Plan: Patient underwent laparoscopic Soraya fundoplication on 11/02/2021. (2) Ankylosing spondylitis: Qualifiers: Ankylosing spondylitis location: unspecified site of spine Qualified Code(s): M45.9 - Ankylosing spondylitis of unspecified sites in spine Code(s): M45.9 - Ankylosing spondylitis of unspecified sites in spine Status: Chronic (3) Crohn disease: Qualifiers: Digestive disease complication type: other complication Gastrointestinal tract location: small intestine Qualified Code(s): K50.018 - Crohn's disease of small intestine with other complication Code(s): K50.90 - Crohn's disease, unspecified, without complications Status: Chronic (4) Depression with anxiety: Code(s): F41.8 - Other specified anxiety disorders Status: Chronic (5) Elevated cholesterol: Code(s): E78.00 - Pure hypercholesterolemia, unspecified Status: Chronic DS: Summary Hospital Course Hospital Course: Patient is a 61-year-old man with ankylosing spondylitis and a history of Crohn disease. He has had gastroesophageal reflux disease for years but this had responded to medication until more recently. His reflux had become recalcitrant to medical therapy. EGD had been done prior to surgery and showed reflux disease with chronic esophagitis. He had esophageal manometry which showed normal esophageal peristalsis and no contraindication to full fundoplication. The patient was prepared for surgery and went to the operating room on 11/02/[address] Sandoval. He underwent an at laparoscopic Soraya fundoplication. Postoperatively, he did well. He tolerated liquids on postop day 1. He became able to ambulate and had improved pain control no longer requiring IV analgesics. He was able to be discharged on postop day 2. In good condition on a soft diet. Status at Discharge Functional status at discharge: independent ambulation Overall status at discharge: patient is progressing back to baseline Time Spent with Patient Time attestation: Total time spent providing and/or coordinating discharge services: Time spent: Less than 30 minutes Exam Const: General: comfortable and no acute distress; No confusion Orientation/consciousness: patient oriented x3 and No confusion GI: Inspection: non-distended, incision (All incisions healing well) and scaphoid GI Palp: Yes Soft to palpation, Yes Tenderness to palpation present (GI) (Minimal tenderness), No Guarding due to palpation present (GI) and No Rebound tenderness present Neuro: General: patient oriented x3, no focal motor deficits and No confusion Extrem: General: no calf tenderness and no edema Psych: Affect: normal affect Insight: Good insight present (Psych) Judgement: Good judgement present (Psych) DS: Data Data Completed and Pending Labs on day of discharge: Labs from last 24 hours 11/04/21 11/04/21 05:28 05:28 WBC 10.8 H RBC 4.31 L Hgb 11.7 L Hct 36.6 L MCV 84.9 MCH 27.1 MCHC 32.0 RDW 14.1 Plt Count 218 MPV 10.3 Sodium 135 L Potassium 3.8 Chloride 101 Carbon Dioxide 32 H Anion Gap 2 L BUN 12 Creatinine 0.80 Estim Creat Clear Calc 89 Estimated GFR > 60 Glucose 100 Calcium 8.1 L Discharge Plan Discharge Attending physician on discharge: Marquise Sandoval Discharging Clinician: Marquise Sandoval Anticipated Discharge Date/Time: 11/04/21 13:34 Patient Disposition: Home, Self-Ca
[2021-11-04 14:00] VITALS: BP 125/70; PULSE 85; RESP 20; TEMP 37.2; O2SAT 96
== END 2021-11-04 14:20 | disposition home or self-care (01) ==
LOC: ANHSURGERY 14:04 → ANH2MED 14:04
PROVIDERS: Nurse Practitioner Family; Admitting Provider Surgery; PCP Emergency Medicine; Visit Provider Surgery
PROC: 0DV44ZZ Restriction of Esophagogastric Junction, Percutaneous Endoscopic Approach (ICD-10-PCS; CPT 43281; principal; 2021-11-02 07:30)
DX: K21.00 Gastro-esophageal reflux disease with esophagitis, without bleeding (principal); K44.9 Diaphragmatic hernia without obstruction or gangrene; K50.90 Crohn's disease, unspecified, without complications; M45.9 Ankylosing spondylitis of unspecified sites in spine; F41.8 Other specified anxiety disorders; E78.00 Pure hypercholesterolemia, unspecified
CPT/HCPCS: 43280; 36415; 71046; 80048; 85025; 85027; 86850; 86900; 86901; 93005; A9270; G0378; J0690; J1100; J1200; J1650; J2250; J2270; J2370; J2405; J2704; J2710; J3010; J7120